=== PATIENT | male | born 1950 | race Caucasian/White ===

== ENCOUNTER 2018-01-08 13:55 | Inpatient (IN) | payer MEDICARE, MEDICAID ==
--- NOTE | 2018-01-08 14:03 | ED Physician Chart ---
ED Chief Complaint/HPI - Patient Information Date Seen:: 01/08/18 Time Seen:: 13:45 Chief Complaint:: AMS History of Present Illness:: onset x one day of AMS and ALOC with abnormal lab tests; no report of trauma, H/ As, S/T, neck pain, C/P, SOB, Abd. Pain, A/N/V/D/c, fever, chills, or urinary s/ s; pt has right LE redness and swelling x 3 days; pt's last tetanus shot: < 5 years; UTD Historian:: Patient, EMS Review:: Nurse's Note Reviewed, Old Chart Reviewed, EMS run form Reviewed ED Review of Systems - Review of Systems General/Constitutional: Fever, No chills, No weight loss, No weakness, No diaphoresis, No edema, No loss of appetite Skin: Skin lesions, Rash, No bruising Head: No headache, No light-headedness Eyes: No loss of vision, No pain, No diplopia ENT: No earache, No nasal drainage, No sore throat, No tinnitus Neck: No neck pain, No swelling, No thyromegaly, No stiffness, No mass noted Cardio Vascular: No chest pain, No palpitations, No PND, No orthopnea, No edema Pulmonary: No SOB, No cough, No sputum, No wheezing GI: No nausea, No vomiting, No diarrhea, No pain, No melena, No hematochezia, No constipation, No hematemesis G/U: No dysuria, No frequency, No hematuria, No nacturia Musculoskeletal: No bone or joint pain, No back pain, No muscle pain Endocrine: No polyuria, No polydipsia Psychiatric: No prior psych history, No depression, No anxiety, No suicidal ideation, No homicidal ideation, No auditory hallucination, No visual hallucination Hematopoietic: No bruising, No lymphadenopathy Allergic/Immuno: No urticaria, No angioedema Neurological: No syncope, No focal symptoms, No weakness, No paresthesia, No headache, No seizure, No dizziness, No confusion, No vertigo ED Past Medical History - Past Medical History Obtainable: Yes Past Medical History: HTN, Asthma/COPD, Dyslipidemia, Thyroid disorder Family History: HTN Social History: Non Smoker, No Alcohol, No Drug Use, Single, Care Facility Surgical History: None Psychiatricy History: None Medication: Reviewed ED Physical Exam - Physical Examination General/Constitutional: Awake, Well-developed, well-nourished, Alert, No distress, GCS 15, Non-toxic appearing, Ambulatory Head: Atraumatic Eyes: Lids, conjuctiva normal, PERRL, EOMI Skin: Nl inspection, No rash, No skin lesions, No ecchymosis, Well hydrated, No lymphadenopathy ENMT: External ears, nose nl, TM canals nl, Nasal exam nl, Lips, teeth, gums nl , Oropharynx nl, Tonsils nl Neck: Nontender, Full ROM w/o pain, No JVD, No nuchal rigidity, No bruit, No mass, No stridor Respiratory: Nl effort/Exclusion, Clear to Auscultation, No Wheeze/Rhonchi/Rales Cardio Vascular: RRR, No murmur, gallop, rubs, NL S1 S2, Carotid/Femoral/Distal pulses equal bilaterally GI: No tenderness/rebounding/guarding, No organomegaly, No hernia, Normal BS's, Nondistended, No mass/bruits, No McBurney tenderness : No CVA tenderness Extremities: No tenderness or effusion, Full ROM, normal strength in all extremities, No edema, Normal digits & nails Other Extremities comments:: RLL Cellulitis Neuro/Psych: Alert/oriented, DTR's symmetric, Normal sensory exam, Normal motor strength, Judgement/insight normal, Mood normal, Normal gait, No focal deficits Misc: Normal back, No paraspinal tenderness ED Labs/Radiology/EKG Results - Lab Results Comments:: H/H: 7.5/22.0; WBC: 3.2 - Radiology Results Comments:: NAD - EKG Interpretations EKG Time:: 13:54 Rate & Rhythm: 69; NSR Comments:: non-specific st-t changes ED Septic Shock - . Is Septic Shock (SBP<90, OR Lactate>4 mmol\L) present?: No ED Reassessment (Disposition) - Reassessment Reassessment Condition:: Improved - Diagnosis Diagnosis:: Dx: Cellulitis; Abnormal Labs; AMS; ALOC; Leukopenia; Sepsis; Anemia - Aftercare/Follow up Instructions Aftercare/Follow-Up Instructions:: Counseled pt regarding lab results/diagnosis & need follow up, Counseled pt & family regarding lab results/diagnosis & need follow up - Patient Disposition Discharge/Transfer:: Acute Care w/in this hosp Accepting Physician:: Dr. Guardado Time Called:: 1600 Time Responded:: 16:00 Admitted to:: Telemetry Spoke to:: Dr. Guardado Admitting Medical Physician:: Dr. Guardado Condition at Disposition:: Stable, Improved
--- NOTE | 2018-01-08 14:40 | Diagnostic Imaging Report ---
Portable chest x-ray HISTORY: Pain The heart is enlarged. Atherosclerotic calcification seen in the aorta. Increased density is noted in the left retrocardiac region. Findings may be associated with a hiatal hernia. Pulmonary parenchymal pathology including pneumonia and/or atelectasis cannot be excluded. If necessary, a CT scan would clarify. IMPRESSION: 1. Cardiomegaly without scattered vascular changes 2. Increased density in the left lower hemithorax/retrocardiac region. Changes may be associated with a hiatal hernia. However, pulmonary parenchymal pathology including pneumonia cannot be excluded. Clinical correlation is needed.
[2018-01-08 15:33] LABS: INR 1.11 (0.5-1.4); PROTHROMBIN TIME (TEST) 11.6 SECONDS (9.5-11.5)
[2018-01-08 15:39] LABS: TROP I 0.03 ng/mL (0.01-0.05)
[2018-01-08 15:40] LABS: ALB/GLOB RATIO 0.9 (1.0-1.8); ALBUMIN 2.5 gm/dL (4.2-5.5); ALKALINE PHOSPHATASE 111 U/L (34-104); ANION GAP 8.9 (7.0-16.0); BILIRUBIN,TOTAL 0.9 mg/dL (0.3-1.0); BUN - UREA NITROGEN 20 mg/dL (7-25); CALCIUM SERUM 7.8 mg/dL (8.6-10.3); CARBON DIOXIDE 19.5 mEq/L (21.0-31.0); CHLORIDE 109 mEq/L (98-107); CREATININE - SERUM 0.9 mg/dL (0.7-1.3); CREATININE KINASE 61 U/L (30-223); GFR AFRICAN-AMERICAN > 60.0 ml/min (>90); GFR NON AFRICAN-AMERICAN > 60.0 ml/min; GLUCOSE 113 mg/dL (70-105); POTASSIUM SERUM 4.4 mEq/L (3.5-5.1); SGOT 30 U/L (13-39); SGPT/ALT 16 U/L (7-52); SODIUM SERUM 133 mEq/L (136-145); TOTAL PROTEIN,SERUM 5.3 gm/dL (6.0-8.3)
[2018-01-08 15:59] LABS: % BASOPHILS 0.3 % (0.0-2.0); % EOSINOPHILS 3.7 % (0.0-5.0); % LYMPHOCYTES 16.1 % (20.0-50.0); % MONOCYTES 12.6 % (2.0-10.0); % NEUTROPHILS 67.3 % (40.0-80.0); EOSINOPHILE ABSOLUTE 0.1 Th/cmm (0.1-0.4); LYMPHOCYTE ABSOLUTE 0.5 Th/cmm (1.5-3.0); MEAN CELL VOLUME 103.9 fl (80-99); MEAN CORPUSCULAR HEMOGLOBIN 35.6 pg (27.0-31.0); MEAN CORPUSCULAR HGB CONC 34.2 pg (28.0-36.0); MEAN PLATELET VOLUME 6.5 fl; MONOCYTE ABSOLUTE 0.4 Th/cmm (0.3-1.0); NEUTROPHILE ABSOLUTE 2.2 Th/cmm (1.8-8.0); PLATELET COUNT 86 Th/cmm (150-400); RED BLOOD COUNT 2.11 Mil/cmm (3.80-5.80); RED CELL DISTRIBUTION WIDTH 16.2 % (11.5-20.0)
[2018-01-08 16:01] LABS: HEMOGLOBIN 7.5 gm/dL (12-16); WHITE BLOOD COUNT 3.2 Th/cmm (4.8-10.8)
[2018-01-08 17:24] LABS: URINE MICROSCOPIC INDICATED? YES; URINE SOURCE MIDSTREAM
[2018-01-08 17:25] LABS: URINE BILIRUBIN NEGATIVE (NEGATIVE); URINE BLOOD MODERATE (NEGATIVE); URINE GLUCOSE (UA) NEGATIVE (NEGATIVE); URINE KETONE NEGATIVE (NEGATIVE); URINE LEUKOCYTE ESTERASE NEGATIVE (NEGATIVE); URINE NITRATE NEGATIVE (NEGATIVE); URINE PROTEIN NEGATIVE (NEGATIVE)
[2018-01-08 17:37] LABS: URINE COLOR YELLOW
[2018-01-08 17:38] LABS: URINE CLARITY SLIGHTLY HAZY (CLEAR)
[2018-01-08 17:39] LABS: URINE BACTERIA NONE SEEN /hpf (NONE SEEN); URINE EPITHELIAL CELLS RARE /lpf (FEW); URINE WBC 0-2 /hpf (0-5)
[2018-01-08] MEDS ORDERED: Non-Formulary Item 1 EA (Dextran 70/Hypromellose [Artificial Tears] 1 EACH) OP PRN (19:27)
[2018-01-08] MEDS ORDERED: Albuterol Nebulizer 2.5mg/3mL HHN PRN (19:27)
[2018-01-08] MEDS ORDERED: Maalox 30 mL Cup PO PRN (19:29)
[2018-01-08] MEDS ORDERED: Levofloxacin 500mg/100mL 500 MG/100 ML BAG IV ONE (19:30)
[2018-01-08] MEDS: D5-0.9%NS 1,000 ML IV SCH (20:33)
[2018-01-08] MEDS: Hydrocodone/APAP 5mg/325mg Tab PO PRN (20:47)
[2018-01-08 22:56] VITALS: BP 112/42
[2018-01-08 23:54] LABS: RBC RETICULOCYTE COUNT 2.11 Mil/cmm
[2018-01-08 23:55] LABS: ABSOLUTE RETICULOCYTE 67.5 Th/cmm; CORRECTED RETICULOCYTE COUNT 1.6 % (0.5-1.5); RETICULOCYTES % COUNTED 3.2 % (0.5-1.5)
[2018-01-09] MEDS: Ipratropium Neb 0.5 mg/2.5 mL UD IH SCH ×4 (06:53→18:48)
[2018-01-09] MEDS: Albuterol Nebulizer 2.5mg/3mL HHN SCH ×4 (06:53→18:48)
[2018-01-09] MEDS: Levothyroxine 0.05 Mg Tab PO SCH (07:00)
[2018-01-09 07:03] LABS: EOSINOPHILE ABSOLUTE 0.1 Th/cmm (0.1-0.4); LYMPHOCYTE ABSOLUTE 0.3 Th/cmm (1.5-3.0); MEAN CORPUSCULAR HEMOGLOBIN 35.7 pg (27.0-31.0); MEAN PLATELET VOLUME 5.7 fl; MONOCYTE ABSOLUTE 0.3 Th/cmm (0.3-1.0); NEUTROPHILE ABSOLUTE 1.3 Th/cmm (1.8-8.0); PLATELET COUNT 67 Th/cmm (150-400); RED BLOOD COUNT 1.84 Mil/cmm (3.80-5.80)
[2018-01-09] MEDS: Hydrocodone/APAP 5mg/325mg Tab PO PRN ×3 (07:09→20:48)
[2018-01-09 07:29] LABS: HEMOGLOBIN 6.6 gm/dL (12-16)
[2018-01-09 07:30] LABS: % BASOPHILS 0.1 % (0.0-2.0); % LYMPHOCYTES 16.9 % (20.0-50.0); % MONOCYTES 13.5 % (2.0-10.0); % NEUTROPHILS 65.5 % (40.0-80.0); HEMATOCRIT 19.3 % (41.0-60)
--- NOTE | 2018-01-09 07:34 | Diagnostic Imaging Report ---
Bilateral lower extremity DVT study HISTORY: Leg pain COMPARISON: None Technique: Longitudinal and transverse sonographic images of the bilateral lower extremity veins were obtained with doppler analysis. FINDINGS: There is normal compressibility, augmentation and phasicity of the bilateral common femoral, superficial femoral, popliteal, and posterior tibial veins. No thrombus is visualized. IMPRESSION: No evidence of thrombus within the bilateral lower extremity veins.
[2018-01-09] MEDS ORDERED: [UNRECOGNIZED DRUG - OTHER] PO SCH (09:00)
[2018-01-09] MEDS ORDERED: TENOFOVIR PO SCH (09:00)
[2018-01-09] MEDS ORDERED: CALCIUM CARBONATE PO SCH (09:00)
[2018-01-09] MEDS ORDERED: EMTRICITAB PO SCH (09:00)
[2018-01-09] MEDS ORDERED: VITAMIN D3 PO SCH (09:00)
[2018-01-09] MEDS ORDERED: EFAVIRENZ PO SCH (09:00)
[2018-01-09] MEDS: Pantoprazole 40 mg EC Tab PO SCH (09:01)
[2018-01-09 10:28] LABS: MEAN CELL VOLUME 105.1 fl (80-99)
[2018-01-09] MEDS: D5-0.9%NS 1,000 ML IV SCH (11:17)
[2018-01-09] MEDS ORDERED: Polyvinyl Alcohol Ophth Soln 15 mL Bottle EACH EYE PRN (12:29)
--- NOTE | 2018-01-09 13:54 | Internal Medicine Prog Note ---
Internal Medicine Subjective - Subjective Service Date: 01/09/18 ([id number]) Internal Medicine Objective - Results Result Diagrams: 01/09/18 06:30 01/08/18 15:15 Recent Labs: Laboratory Last Values WBC 2.0 Th/cmm (4.8-10.8) L* 01/09/18 06:30 RBC 1.84 Mil/cmm (3.80-5.80) L 01/09/18 06:30 Hgb 6.6 gm/dL (12-16) L* 01/09/18 06:30 Hct 19.3 % (41.0-60) L* 01/09/18 06:30 MCV 105.1 fl (80-99) H 01/09/18 06:30 MCH 35.7 pg (27.0-31.0) H 01/09/18 06:30 MCHC Differential 34.0 pg (28.0-36.0) 01/09/18 06:30 RDW 16.0 % (11.5-20.0) 01/09/18 06:30 Plt Count 67 Th/cmm (150-400) L 01/09/18 06:30 MPV 5.7 fl 01/09/18 06:30 Neutrophils % 65.5 % (40.0-80.0) 01/09/18 06:30 Lymphocytes % 16.9 % (20.0-50.0) L 01/09/18 06:30 Monocytes % 13.5 % (2.0-10.0) H 01/09/18 06:30 Eosinophils % 4.0 % (0.0-5.0) 01/09/18 06:30 Basophils % 0.1 % (0.0-2.0) 01/09/18 06:30 Total Retics Counted 3.2 % (0.5-1.5) H 01/08/18 15:15 Absolute Retic 67.5 Th/cmm 01/08/18 15:15 Corrected Retic Count 1.6 % (0.5-1.5) H 01/08/18 15:15 PT 11.6 SECONDS (9.5-11.5) H 01/08/18 15:15 INR 1.11 (0.5-1.4) 01/08/18 15:15 PTT (Actin FS) 23.2 SECONDS (26.0-38.0) L 01/08/18 15:15 Sodium 133 mEq/L (136-145) L 01/08/18 15:15 Potassium 4.4 mEq/L (3.5-5.1) 01/08/18 15:15 Chloride 109 mEq/L (98-107) H 01/08/18 15:15 Carbon Dioxide 19.5 mEq/L (21.0-31.0) L 01/08/18 15:15 Anion Gap 8.9 (7.0-16.0) 01/08/18 15:15 BUN 20 mg/dL (7-25) 01/08/18 15:15 Creatinine 0.9 mg/dL (0.7-1.3) 01/08/18 15:15 Est GFR ( Amer) > 60.0 ml/min (>90) 01/08/18 15:15 Est GFR (Non-Af Amer) > 60.0 ml/min 01/08/18 15:15 BUN/Creatinine Ratio 22.2 01/08/18 15:15 Glucose 113 mg/dL (70-105) H 01/08/18 15:15 Whole Bld Lactic Acid 1.99 mmol/L (0.60-1.99) 01/08/18 15:15 Calcium 7.8 mg/dL (8.6-10.3) L 01/08/18 15:15 Total Bilirubin 0.9 mg/dL (0.3-1.0) 01/08/18 15:15 AST 30 U/L (13-39) 01/08/18 15:15 ALT 16 U/L (7-52) 01/08/18 15:15 Alkaline Phosphatase 111 U/L (34-104) H 01/08/18 15:15 Lactate Dehydrogenase 233 U/L (140-271) 01/08/18 15:15 Creatine Kinase 61 U/L (30-223) 01/08/18 15:15 Troponin I 0.03 ng/mL (0.01-0.05) 01/08/18 15:15 Total Protein 5.3 gm/dL (6.0-8.3) L 01/08/18 15:15 Albumin 2.5 gm/dL (4.2-5.5) L 01/08/18 15:15 Globulin 2.8 gm/dL 01/08/18 15:15 Albumin/Globulin Ratio 0.9 (1.0-1.8) L 01/08/18 15:15 Urine Source MIDSTREAM 01/08/18 17:00 Urine Color YELLOW 01/08/18 17:00 Urine Clarity SLIGHTLY HAZY (CLEAR) 01/08/18 17:00 Urine pH 7.0 (4.6 - 8.0) 01/08/18 17:00 Ur Specific [place] 1.010 (1.005-1.030) 01/08/18 17:00 Urine Protein NEGATIVE mg/dL (NEGATIVE) 01/08/18 17:00 Urine Glucose (UA) NEGATIVE mg/dL (NEGATIVE) 01/08/18 17:00 Urine Ketones NEGATIVE mg/dL (NEGATIVE) 01/08/18 17:00 Urine Blood MODERATE (NEGATIVE) H 01/08/18 17:00 Urine Nitrate NEGATIVE (NEGATIVE) 01/08/18 17:00 Urine Bilirubin NEGATIVE (NEGATIVE) 01/08/18 17:00 Urine Urobilinogen 2.0 E.U./dL (0.2 - 1.0) 01/08/18 17:00 Ur Leukocyte Esterase NEGATIVE (NEGATIVE) 01/08/18 17:00 Urine RBC 5-10 /hpf (0-5) H 01/08/18 17:00 Urine WBC 0-2 /hpf (0-5) 01/08/18 17:00 Ur Epithelial Cells RARE /lpf (FEW) 01/08/18 17:00 Urine Bacteria NONE SEEN /hpf (NONE SEEN) 01/08/18 17:00 Blood Type O NEGATIVE 01/09/18 08:10 Antibody Screen NEGATIVE 01/09/18 08:10 Crossmatch See Detail 01/09/18 08:10 - Physical Exam Vitals and I&O: Vital Signs Temp 98.8 F 01/09/18 12:00 Pulse 89 01/09/18 12:00 Resp 20 01/09/18 12:00 BP 104/48 01/09/18 12:00 Pulse Ox 96 01/09/18 12:00 Intake & Output 01/08/18 01/09/18 01/09/18 18:59 06:59 18:59 Intake Total 340 1000 Output Total 600 Balance -260 1000 Weight (lbs) 117 lb Intake: Intake, IV Amount 100 1000 D5-0.9%Ns 1,000 ml @ 80 1000 mls/hr IV .[id number] [facility] Rx #:[id number] Oral 240 Output: Urine 600 Other: # Bowel Movements 0 Weight Source Bedscale Active Medications: Current Medications Acetaminophen (Tylenol) 650 mg PO Q4H PRN PRN Reason: Pain Or Fever above 101 Stop: 03/09/18 19:28 Acetaminophen/Hydrocodone Bitart ([place] 5mg/325mg) 1 tab PO Q6H PRN PRN Reason: PAIN Stop: 03/09/18 19:26 Last Admin: 01/09/18 13:20 Dose: 1 tab Al Hydrox/Mg Hydrox/Simethicone (Maalox) 30 ml PO Q6H PRN PRN Reason: Dyspepsia Stop: 03/09/18 19:28 Albuterol Sulfate (Albuterol 2.5mg/3ml Neb Ud) 2.5 mg HHN QIDRT [facility] Stop: 03/10/18 06:59 Last Admin: 01/09/18 06:53 Dose: 2.5 mg Artificial Tears (Artificial Tears Ophth Soln) 1 drop EACH EYE Q4H PRN PRN Reason: EYE DRYNESS Stop: 03/10/18 12:28 Calcium Carbonate (Calcium Carb) 600 mg PO DAILY [facility] Stop: 03/11/18 08:59 Docusate Sodium (Colace) 100 mg PO BID PRN PRN Reason: Constipation Stop: 03/09/18 19:26 Dextrose/Sodium Chloride (D5-0.9%Ns) 1,000 mls @ 80 mls/hr IV .[id number] [facility] Stop: 03/09/18 19:29 Last Admin: 01/09/18 11:17 Dose: 80 mls/hr Levofloxacin (Levaquin Pb) 500 mg in 100 mls @ 100 mls/hr IV Q24HR [facility] Stop: 03/10/18 20:59 Ipratropium [place] (Atrovent Neb 0.5mg/2.5ml) 0.5 mg IH QIDRT [facility] Stop: 03/10/18 06:59 Last Admin: 01/09/18 11:18 Dose: 0.5 mg Levothyroxine Sodium (Synthroid) 0.05 mg PO QDAC [facility] Stop: 03/10/18 07:29 Last Admin: 01/09/18 07:00 Dose: 0.05 mg Miscellaneous (Albuterol Sulfate [Proair Respiclick]) 90 mcg IH Q6H PRN PRN Reason: Shortness of Breath Miscellaneous (Budesonide/Formoterol Fumarate [Symbicort 80-4.5 Mcg Inhaler]) 1 aer IH BID [facility] Stop: 03/10/18 08:59 Miscellaneous (Efavirenz/Emtricitab/Tenofovir [Atripla Tablet]) 1 tab PO DAILY [facility] Stop: 03/10/18 08:59 Ondansetron HCl (Zofran) 4 mg IV Q8H PRN PRN Reason: Nausea / Vomiting Stop: 03/09/18 19:28 Pantoprazole Sodium (Protonix) 40 mg PO DAILY [facility] Stop: 03/10/18 08:59 Last Admin: 01/09/18 09:01 Dose: 40 mg Zolpidem Tartrate (Ambien) 5 mg PO HS PRN PRN Reason: Insomnia Stop: 03/09/18 19:26 Zolpidem Tartrate (Ambien) 10 mg PO HS PRN PRN Reason: Insomnia Stop: 03/09/18 19:27 Last Admin: 01/08/18 20:48 Dose: 10 mg Internal Medicine Assmt/Plan - Assessment Assessment: SEVERE ANEMIA RIGHT LOWER EXT CELLULITIS ACUTE UTI MODERATE PROTEIN [place] MALNUTRITION HYPOCALCEMIA COPD RIGHT EYE BLINDNESS PANCYTOPENIA HIV HYPOTHYROIDISM HIATAL HERNIA POSSIBLE PNA
--- NOTE | 2018-01-09 15:07 | History & Physical ---
ADMIT DATE: 01/09/2018 CHIEF COMPLAINT: Altered mental status and abnormal labs. HISTORY OF PRESENT ILLNESS: This is a 67-year-old male who is a resident of [facility] who is admitted here to the telemetry unit due to hemoglobin of 6.5. The patient's right lower extremity is noted also with redness. The patient did not have any fevers at the correction. PAST MEDICAL HISTORY: Right eye blindness, HIV, COPD, pancytopenia, dehydration, dysphagia, hypertension, hypothyroidism, nasal congestion and liver cirrhosis. PAST SURGICAL HISTORY: None. FAMILY HISTORY: Noncontributory. SOCIAL HISTORY: The patient is a correction resident requiring 24-hour nursing care. FAMILY HISTORY: Noncontributory. REVIEW OF SYSTEMS: GENERAL: Denies any fevers and chills. CARDIOVASCULAR: Denies chest pain. RESPIRATORY: Denies shortness of breath. GASTROINTESTINAL: Denies nausea, vomiting, abdominal pain. GENITOURINARY: Denies increased frequency or dysuria. NEUROLOGIC: No headaches, seizures, or syncope. All other systems reviewed are negative. PHYSICAL EXAMINATION: GENERAL: A elderly male, awake, alert, in no apparent distress. VITAL SIGNS: Temperature ___, heart rate 89, blood pressure 104/48, respirations 20, O2 96%. HEENT: Head; normocephalic, atraumatic. NECK: Supple. No mass. LUNGS: Clear bilaterally. HEART: Regular rate and rhythm. ABDOMEN: Soft, nontender. LABORATORY DATA: WBC 2.0, H and H 6.6 and 19.3, platelets 67. Sodium 130, potassium 4.4, chloride 109, BUN 20, creatinine 0.9, albumin 2.5. DIAGNOSTIC DATA: The patient had a lower extremity ultrasound done and the impression is no evidence of acute DVT. The patient also had a chest x-ray done and the impression is cardiomegaly without atherosclerotic vascular changes, increased density in the left lower hemothorax, retrocardiac region, changes may be associated with hiatal hernia. ASSESSMENT: Cellulitis of right lower extremity, severe anemia, acute UTI, moderate protein calorie malnutrition, hypocalcemia, COPD, right eye blindness, pancytopenia, HIV, hypothyroidism, hiatal hernia, possible pneumonia. PLAN: The patient to be admitted to telemetry unit. We will get GI on the case as well as wound care. We will monitor patient's H and H. We will transfuse patient with 1 unit of PRBCs, keep the patient on empiric IV antibiotic and Levaquin. We will continue to follow this patient. [facility]# [id number]
[2018-01-09 16:52] LABS: EOSINOPHILE ABSOLUTE 0.1 Th/cmm (0.1-0.4); LYMPHOCYTE ABSOLUTE 0.3 Th/cmm (1.5-3.0); MANUAL DIFF REQUIRED? YES; MEAN CELL VOLUME 101.4 fl (80-99); MEAN CORPUSCULAR HEMOGLOBIN 35.3 pg (27.0-31.0); MEAN CORPUSCULAR HGB CONC 34.8 pg (28.0-36.0); MONOCYTE ABSOLUTE 0.3 Th/cmm (0.3-1.0); NEUTROPHILE ABSOLUTE 1.1 Th/cmm (1.8-8.0); PLATELET COUNT 69 Th/cmm (150-400); RED BLOOD COUNT 2.08 Mil/cmm (3.80-5.80); RED CELL DISTRIBUTION WIDTH 16.8 % (11.5-20.0)
[2018-01-09 17:07] LABS: HEMOGLOBIN 7.4 gm/dL (12-16); WHITE BLOOD COUNT 1.8 Th/cmm (4.8-10.8)
[2018-01-09 17:08] LABS: HEMATOCRIT 21.1 % (41.0-60)
[2018-01-09] MEDS: Levofloxacin 500mg/100mL Premix Bag IV SCH (20:59)
[2018-01-10] MEDS: D5-0.9%NS 1,000 ML IV SCH ×2 (04:36→20:36)
[2018-01-10] MEDS: Hydrocodone/APAP 5mg/325mg Tab PO PRN ×2 (05:53→19:33)
[2018-01-10] MEDS: Levothyroxine 0.05 Mg Tab PO SCH (06:32)
[2018-01-10] MEDS: Budesonide 0.5 Mg/2 mL Ud HHN SCH ×2 (07:00→19:01)
--- NOTE | 2018-01-10 07:35 | Diagnostic Imaging Report ---
Right foot 2 views limited Indication: pain Comparison: none Findings: Exam is limited as oblique views were not provided. There is evidence of subacute to chronic appearing nondisplaced fracture involving the distal shaft of the fourth metatarsal extending the fourth metatarsal neck. There is also old fracture of the second proximal phalanx. Osteopenia is noted. There is diffuse soft tissue swelling along the dorsal forefoot. Atherosclerosis is noted. Mild degenerative changes are noted. Impression: Limited exam as oblique views are not obtained. There is a subacute to chronic appearing nondisplaced fracture of the distal shaft of the fourth metatarsal extending to the fourth metatarsal neck. Please correlate with clinical findings. Additional chronic second proximal phalanx fracture. Diffuse soft tissue swelling along the dorsal forefoot. No x-ray evidence of osteomyelitis, however, if clinically warranted MRI may be obtained for further assessment. Apparent mild degenerative changes. Osteopenia. In the setting of trauma, if clinical symptoms persist and there is continued concern for an occult fracture, follow up exams in 5-7 days is suggested.
[2018-01-10] MEDS: Albuterol Nebulizer 2.5mg/3mL HHN SCH ×4 (07:38→19:01)
[2018-01-10] MEDS: Ipratropium Neb 0.5 mg/2.5 mL UD IH SCH ×4 (07:38→19:01)
[2018-01-10 07:42] LABS: MANUAL DIFF REQUIRED? YES; MEAN CELL VOLUME 102.1 fl (80-99); MEAN CORPUSCULAR HEMOGLOBIN 34.5 pg (27.0-31.0); MEAN CORPUSCULAR HGB CONC 33.8 pg (28.0-36.0); MEAN PLATELET VOLUME 5.4 fl; PLATELET COUNT 85 Th/cmm (150-400); RED BLOOD COUNT 2.19 Mil/cmm (3.80-5.80); RED CELL DISTRIBUTION WIDTH 16.9 % (11.5-20.0)
[2018-01-10 07:53] LABS: ANION GAP 9.5 (7.0-16.0); BUN - UREA NITROGEN 16 mg/dL (7-25); CALCIUM SERUM 7.4 mg/dL (8.6-10.3); CARBON DIOXIDE 17.1 mEq/L (21.0-31.0); CHLORIDE 114 mEq/L (98-107); CREATININE - SERUM 0.8 mg/dL (0.7-1.3); GFR AFRICAN-AMERICAN > 60.0 ml/min (>90); GFR NON AFRICAN-AMERICAN > 60.0 ml/min; GLUCOSE 89 mg/dL (70-105); POTASSIUM SERUM 3.6 mEq/L (3.5-5.1); SODIUM SERUM 137 mEq/L (136-145)
[2018-01-10 07:54] LABS: HEMATOCRIT 22.4 % (41.0-60); HEMOGLOBIN 7.6 gm/dL (12-16)
[2018-01-10 08:12] LABS: TOTAL CELLS COUNTED 100
[2018-01-10 08:13] LABS: BAND NEUTROPHILE 2 % (0-10); BASOPHIL 0 % (0-3); EOSINOPHIL 1 % (0-5); LYMPHOCYTE 17 % (20-50); MONOCYTE 8 % (2-10); NEUTROPHILS 72 % (40-80)
[2018-01-10] MEDS: Pantoprazole 40 mg EC Tab PO SCH (08:54)
[2018-01-10 13:13] LABS: FOLIC ACID 5.4 ng/mL (>3.0)
--- NOTE | 2018-01-10 14:40 | GI Progress Note ---
Subjective - Review of Systems Service Date: 01/10/18 Subjective: EVENTS NOTED. HAD BM - PRIOR CONSTIPATION. FILIBERTO ORAL DIET. Objective - Results Result Diagrams: 01/10/18 06:51 01/10/18 06:51 Recent Labs: Laboratory Last Values WBC 2.0 Th/cmm (4.8-10.8) L* 01/10/18 06:51 RBC 2.19 Mil/cmm (3.80-5.80) L 01/10/18 06:51 Hgb 7.6 gm/dL (12-16) L* 01/10/18 06:51 Hct 22.4 % (41.0-60) L 01/10/18 06:51 MCV 102.1 fl (80-99) H 01/10/18 06:51 MCH 34.5 pg (27.0-31.0) H 01/10/18 06:51 MCHC Differential 33.8 pg (28.0-36.0) 01/10/18 06:51 RDW 16.9 % (11.5-20.0) 01/10/18 06:51 Plt Count 85 Th/cmm (150-400) L 01/10/18 06:51 MPV 5.4 fl 01/10/18 06:51 Neutrophils % 65.5 % (40.0-80.0) 01/09/18 06:30 Band Neutrophils % 2 % (0-10) 01/10/18 06:51 Lymphocytes % 16.9 % (20.0-50.0) L 01/09/18 06:30 Monocytes % 13.5 % (2.0-10.0) H 01/09/18 06:30 Eosinophils % 4.0 % (0.0-5.0) 01/09/18 06:30 Basophils % 0.1 % (0.0-2.0) 01/09/18 06:30 Neutrophils (Manual) 72 % (40-80) 01/10/18 06:51 Lymphocytes 17 % (20-50) L 01/10/18 06:51 Monocytes 8 % (2-10) 01/10/18 06:51 Eosinophils 1 % (0-5) 01/10/18 06:51 Basophils 0 % (0-3) 01/10/18 06:51 Total Retics Counted 3.2 % (0.5-1.5) H 01/08/18 15:15 Absolute Retic 67.5 Th/cmm 01/08/18 15:15 Corrected Retic Count 1.6 % (0.5-1.5) H 01/08/18 15:15 PT 11.6 SECONDS (9.5-11.5) H 01/08/18 15:15 INR 1.11 (0.5-1.4) 01/08/18 15:15 PTT (Actin FS) 23.2 SECONDS (26.0-38.0) L 01/08/18 15:15 Sodium 137 mEq/L (136-145) 01/10/18 06:51 Potassium 3.6 mEq/L (3.5-5.1) 01/10/18 06:51 Chloride 114 mEq/L (98-107) H 01/10/18 06:51 Carbon Dioxide 17.1 mEq/L (21.0-31.0) L 01/10/18 06:51 Anion Gap 9.5 (7.0-16.0) 01/10/18 06:51 BUN 16 mg/dL (7-25) 01/10/18 06:51 Creatinine 0.8 mg/dL (0.7-1.3) 01/10/18 06:51 Est GFR ( Amer) > 60.0 ml/min (>90) 01/10/18 06:51 Est GFR (Non-Af Amer) > 60.0 ml/min 01/10/18 06:51 BUN/Creatinine Ratio 20.0 01/10/18 06:51 Glucose 89 mg/dL (70-105) 01/10/18 06:51 Whole Bld Lactic Acid 1.99 mmol/L (0.60-1.99) 01/08/18 15:15 Calcium 7.4 mg/dL (8.6-10.3) L 01/10/18 06:51 Total Bilirubin 0.9 mg/dL (0.3-1.0) 01/08/18 15:15 AST 30 U/L (13-39) 01/08/18 15:15 ALT 16 U/L (7-52) 01/08/18 15:15 Alkaline Phosphatase 111 U/L (34-104) H 01/08/18 15:15 Lactate Dehydrogenase 233 U/L (140-271) 01/08/18 15:15 Creatine Kinase 61 U/L (30-223) 01/08/18 15:15 Troponin I 0.03 ng/mL (0.01-0.05) 01/08/18 15:15 B-Natriuretic Peptide 400.0 pg/mL (5.0-100.0) H 01/10/18 06:51 Total Protein 5.3 gm/dL (6.0-8.3) L 01/08/18 15:15 Albumin 2.5 gm/dL (4.2-5.5) L 01/08/18 15:15 Globulin 2.8 gm/dL 01/08/18 15:15 Albumin/Globulin Ratio 0.9 (1.0-1.8) L 01/08/18 15:15 Vitamin B12 535 pg/mL (232-1245) 01/09/18 06:30 Folic Acid 5.4 ng/mL (>3.0) 01/09/18 06:30 Urine Source MIDSTREAM 01/08/18 17:00 Urine Color YELLOW 01/08/18 17:00 Urine Clarity SLIGHTLY HAZY (CLEAR) 01/08/18 17:00 Urine pH 7.0 (4.6 - 8.0) 01/08/18 17:00 Ur Specific [place] 1.010 (1.005-1.030) 01/08/18 17:00 Urine Protein NEGATIVE mg/dL (NEGATIVE) 01/08/18 17:00 Urine Glucose (UA) NEGATIVE mg/dL (NEGATIVE) 01/08/18 17:00 Urine Ketones NEGATIVE mg/dL (NEGATIVE) 01/08/18 17:00 Urine Blood MODERATE (NEGATIVE) H 01/08/18 17:00 Urine Nitrate NEGATIVE (NEGATIVE) 01/08/18 17:00 Urine Bilirubin NEGATIVE (NEGATIVE) 01/08/18 17:00 Urine Urobilinogen 2.0 E.U./dL (0.2 - 1.0) 01/08/18 17:00 Ur Leukocyte Esterase NEGATIVE (NEGATIVE) 01/08/18 17:00 Urine RBC 5-10 /hpf (0-5) H 01/08/18 17:00 Urine WBC 0-2 /hpf (0-5) 01/08/18 17:00 Ur Epithelial Cells RARE /lpf (FEW) 01/08/18 17:00 Urine Bacteria NONE SEEN /hpf (NONE SEEN) 01/08/18 17:00 Stool Occult Blood NEGATIVE (NEGATIVE) 01/10/18 13:30 Blood Type O NEGATIVE 01/09/18 08:10 Antibody Screen NEGATIVE 01/09/18 08:10 Crossmatch See Detail 01/09/18 08:10 - Physical Exam Vitals and I&O: Vital Signs Temp 97.8 F 01/10/18 11:15 Pulse 62 01/10/18 11:15 Resp 17 01/10/18 11:15 BP 120/57 01/10/18 11:15 Pulse Ox 98 01/10/18 11:15 Intake & Output 01/09/18 01/10/18 01/10/18 18:59 06:59 18:59 Intake Total 1000 1100 Balance 1000 1100 Weight (lbs) 62.686 kg Intake: Intake, IV Amount 1000 1100 D5-0.9%Ns 1,000 ml @ 80 1000 1000 mls/hr IV .[id number] [facility] Rx #:[id number] Levofloxacin 500mg/100mL 100 500 mg In 100 ml @ 100 mls/hr IV Q24HR [facility] Rx#: [id number] Other: Weight Source Bedscale Active Medications: Current Medications Acetaminophen (Tylenol) 650 mg PO Q4H PRN PRN Reason: Pain Or Fever above 101 Stop: 03/09/18 19:28 Last Admin: 01/10/18 01:00 Dose: 650 mg Acetaminophen/Hydrocodone Bitart ([place] 5mg/325mg) 1 tab PO Q6H PRN PRN Reason: PAIN Stop: 03/09/18 19:26 Last Admin: 01/10/18 05:53 Dose: 1 tab Al Hydrox/Mg Hydrox/Simethicone (Maalox) 30 ml PO Q6H PRN PRN Reason: Dyspepsia Stop: 03/09/18 19:28 Albuterol Sulfate (Albuterol 2.5mg/3ml Neb Ud) 2.5 mg HHN Q6H PRN PRN Reason: Shortness of Breath Albuterol Sulfate (Albuterol 2.5mg/3ml Neb Ud) 2.5 mg HHN QIDRT [facility] Stop: 03/10/18 06:59 Last Admin: 01/10/18 13:39 Dose: Not Given Artificial Tears (Artificial Tears Ophth Soln) 1 drop EACH EYE Q4H PRN PRN Reason: EYE DRYNESS Stop: 03/10/18 12:28 Budesonide (Pulmicort) 0.5 mg HHN BIDRT [facility] Stop: 03/10/18 08:59 Last Admin: 01/10/18 07:00 Dose: Not Given Calcium Carbonate (Calcium Carb) 600 mg PO DAILY [facility] Stop: 03/11/18 08:59 Last Admin: 01/10/18 08:54 Dose: 600 mg Docusate Sodium (Colace) 100 mg PO BID PRN PRN Reason: Constipation Stop: 03/09/18 19:26 Last Admin: 01/10/18 08:54 Dose: 100 mg Ferrous Sulfate (Iron) 325 mg PO BID [facility] Stop: 03/11/18 16:59 Dextrose/Sodium Chloride (D5-0.9%Ns) 1,000 mls @ 80 mls/hr IV .[id number] [facility] Stop: 03/09/18 19:29 Last Admin: 01/10/18 04:36 Dose: 80 mls/hr Levofloxacin (Levaquin Pb) 500 mg in 100 mls @ 100 mls/hr IV Q24HR [facility] Stop: 03/10/18 20:59 Last Infusion: 01/10/18 00:04 Dose: Infused Ipratropium [place] (Atrovent Neb 0.5mg/2.5ml) 0.5 mg IH QIDRT [facility] Stop: 03/10/18 06:59 Last Admin: 01/10/18 13:39 Dose: Not Given Levothyroxine Sodium (Synthroid) 0.05 mg PO QDAC [facility] Stop: 03/10/18 07:29 Last Admin: 01/10/18 06:32 Dose: 0.05 mg Miscellaneous (Efavirenz/Emtricitab/Tenofovir [Atripla Tablet]) 1 tab PO DAILY [facility] Stop: 03/10/18 08:59 Ondansetron HCl (Zofran) 4 mg IV Q8H PRN PRN Reason: Nausea / Vomiting Stop: 03/09/18 19:28 Last Admin: 01/10/18 07:31 Dose: 4 mg Pantoprazole Sodium (Protonix) 40 mg PO DAILY [facility] Stop: 03/10/18 08:59 Last Admin: 01/10/18 08:54 Dose: 40 mg Zolpidem Tartrate (Ambien) 5 mg PO HS PRN PRN Reason: Insomnia Stop: 03/09/18 19:26 Last Admin: 01/09/18 21:00 Dose: 5 mg Zolpidem Tartrate (Ambien) 10 mg PO HS PRN PRN Reason: Insomnia Stop: 03/09/18 19:27 Last Admin: 01/08/18 20:48 Dose: 10 mg General: Alert, No acute distress HEENT: Atraumatic Neck: Supple Cardiovascular: Regular rate Lungs: Clear to auscultation Abdomen: Bowel sounds, Soft, no Tender Assessment/Plan - Problem List Patient Problems: All Active Problems LOW HB AND HCT WITH RIGHT LOWER LEG [place] (Acute) - Assessment Assessment: IMPRESSION: 1. PANCYTOPENIA - COULD BE DUE TO HIV VS. BM DISORDER VS. MEDS. 2. HIV POSITIVE - ON HAART. 3. CONSTIPATION. 4. HAD EGD AND COLONOSCOPY IN 2017 REPORTEDLY NEGATIVE PER PT. 5. FOBT NEG. RECS: 1. CONSERVATIVE NON-ENDOSCOPIC MANAGEMENT. 2. NO NEED TO REPEAT ENDOSCOPIC WORKUP FOR NOW. 3. STOOL SOFTENERS. 4. DIET TOLERATED. 5. CONSIDER HEME EVALUATION FOR PANCYTOPENIA.
--- NOTE | 2018-01-10 15:15 | Internal Medicine Prog Note ---
Internal Medicine Subjective - Subjective Patient seen and examined:: with staff, chart reviewed Patient is:: awake, verbal, interactive, in bed, congested Per staff patient has:: no adverse event, no episodes of fall, poor appetite, tolerating meds Internal Medicine Objective - Results Result Diagrams: 01/10/18 06:51 01/10/18 06:51 Recent Labs: Laboratory Last Values WBC 2.0 Th/cmm (4.8-10.8) L* 01/10/18 06:51 RBC 2.19 Mil/cmm (3.80-5.80) L 01/10/18 06:51 Hgb 7.6 gm/dL (12-16) L* 01/10/18 06:51 Hct 22.4 % (41.0-60) L 01/10/18 06:51 MCV 102.1 fl (80-99) H 01/10/18 06:51 MCH 34.5 pg (27.0-31.0) H 01/10/18 06:51 MCHC Differential 33.8 pg (28.0-36.0) 01/10/18 06:51 RDW 16.9 % (11.5-20.0) 01/10/18 06:51 Plt Count 85 Th/cmm (150-400) L 01/10/18 06:51 MPV 5.4 fl 01/10/18 06:51 Neutrophils % 65.5 % (40.0-80.0) 01/09/18 06:30 Band Neutrophils % 2 % (0-10) 01/10/18 06:51 Lymphocytes % 16.9 % (20.0-50.0) L 01/09/18 06:30 Monocytes % 13.5 % (2.0-10.0) H 01/09/18 06:30 Eosinophils % 4.0 % (0.0-5.0) 01/09/18 06:30 Basophils % 0.1 % (0.0-2.0) 01/09/18 06:30 Neutrophils (Manual) 72 % (40-80) 01/10/18 06:51 Lymphocytes 17 % (20-50) L 01/10/18 06:51 Monocytes 8 % (2-10) 01/10/18 06:51 Eosinophils 1 % (0-5) 01/10/18 06:51 Basophils 0 % (0-3) 01/10/18 06:51 Total Retics Counted 3.2 % (0.5-1.5) H 01/08/18 15:15 Absolute Retic 67.5 Th/cmm 01/08/18 15:15 Corrected Retic Count 1.6 % (0.5-1.5) H 01/08/18 15:15 PT 11.6 SECONDS (9.5-11.5) H 01/08/18 15:15 INR 1.11 (0.5-1.4) 01/08/18 15:15 PTT (Actin FS) 23.2 SECONDS (26.0-38.0) L 01/08/18 15:15 Sodium 137 mEq/L (136-145) 01/10/18 06:51 Potassium 3.6 mEq/L (3.5-5.1) 01/10/18 06:51 Chloride 114 mEq/L (98-107) H 01/10/18 06:51 Carbon Dioxide 17.1 mEq/L (21.0-31.0) L 01/10/18 06:51 Anion Gap 9.5 (7.0-16.0) 01/10/18 06:51 BUN 16 mg/dL (7-25) 01/10/18 06:51 Creatinine 0.8 mg/dL (0.7-1.3) 01/10/18 06:51 Est GFR ( Amer) > 60.0 ml/min (>90) 01/10/18 06:51 Est GFR (Non-Af Amer) > 60.0 ml/min 01/10/18 06:51 BUN/Creatinine Ratio 20.0 01/10/18 06:51 Glucose 89 mg/dL (70-105) 01/10/18 06:51 Whole Bld Lactic Acid 1.99 mmol/L (0.60-1.99) 01/08/18 15:15 Calcium 7.4 mg/dL (8.6-10.3) L 01/10/18 06:51 Total Bilirubin 0.9 mg/dL (0.3-1.0) 01/08/18 15:15 AST 30 U/L (13-39) 01/08/18 15:15 ALT 16 U/L (7-52) 01/08/18 15:15 Alkaline Phosphatase 111 U/L (34-104) H 01/08/18 15:15 Lactate Dehydrogenase 233 U/L (140-271) 01/08/18 15:15 Creatine Kinase 61 U/L (30-223) 01/08/18 15:15 Troponin I 0.03 ng/mL (0.01-0.05) 01/08/18 15:15 B-Natriuretic Peptide 400.0 pg/mL (5.0-100.0) H 01/10/18 06:51 Total Protein 5.3 gm/dL (6.0-8.3) L 01/08/18 15:15 Albumin 2.5 gm/dL (4.2-5.5) L 01/08/18 15:15 Globulin 2.8 gm/dL 01/08/18 15:15 Albumin/Globulin Ratio 0.9 (1.0-1.8) L 01/08/18 15:15 Vitamin B12 535 pg/mL (232-1245) 01/09/18 06:30 Folic Acid 5.4 ng/mL (>3.0) 01/09/18 06:30 Urine Source MIDSTREAM 01/08/18 17:00 Urine Color YELLOW 01/08/18 17:00 Urine Clarity SLIGHTLY HAZY (CLEAR) 01/08/18 17:00 Urine pH 7.0 (4.6 - 8.0) 01/08/18 17:00 Ur Specific [place] 1.010 (1.005-1.030) 01/08/18 17:00 Urine Protein NEGATIVE mg/dL (NEGATIVE) 01/08/18 17:00 Urine Glucose (UA) NEGATIVE mg/dL (NEGATIVE) 01/08/18 17:00 Urine Ketones NEGATIVE mg/dL (NEGATIVE) 01/08/18 17:00 Urine Blood MODERATE (NEGATIVE) H 01/08/18 17:00 Urine Nitrate NEGATIVE (NEGATIVE) 01/08/18 17:00 Urine Bilirubin NEGATIVE (NEGATIVE) 01/08/18 17:00 Urine Urobilinogen 2.0 E.U./dL (0.2 - 1.0) 01/08/18 17:00 Ur Leukocyte Esterase NEGATIVE (NEGATIVE) 01/08/18 17:00 Urine RBC 5-10 /hpf (0-5) H 01/08/18 17:00 Urine WBC 0-2 /hpf (0-5) 01/08/18 17:00 Ur Epithelial Cells RARE /lpf (FEW) 01/08/18 17:00 Urine Bacteria NONE SEEN /hpf (NONE SEEN) 01/08/18 17:00 Stool Occult Blood NEGATIVE (NEGATIVE) 01/10/18 13:30 Blood Type O NEGATIVE 01/09/18 08:10 Antibody Screen NEGATIVE 01/09/18 08:10 Crossmatch See Detail 01/09/18 08:10 - Physical Exam Vitals and I&O: Vital Signs Temp 97.8 F 01/10/18 11:15 Pulse 75 01/10/18 14:58 Resp 18 01/10/18 14:58 BP 120/57 01/10/18 11:15 Pulse Ox 97 01/10/18 14:58 Intake & Output 01/09/18 01/10/18 01/10/18 18:59 06:59 18:59 Intake Total 1000 1100 Balance 1000 1100 Weight (lbs) 62.686 kg Intake: Intake, IV Amount 1000 1100 D5-0.9%Ns 1,000 ml @ 80 1000 1000 mls/hr IV .[id number] [facility] Rx #:[id number] Levofloxacin 500mg/100mL 100 500 mg In 100 ml @ 100 mls/hr IV Q24HR [facility] Rx#: [id number] Other: Weight Source Bedscale Active Medications: Current Medications Acetaminophen (Tylenol) 650 mg PO Q4H PRN PRN Reason: Pain Or Fever above 101 Stop: 03/09/18 19:28 Last Admin: 01/10/18 01:00 Dose: 650 mg Acetaminophen/Hydrocodone Bitart ([place] 5mg/325mg) 1 tab PO Q6H PRN PRN Reason: PAIN Stop: 03/09/18 19:26 Last Admin: 01/10/18 05:53 Dose: 1 tab Al Hydrox/Mg Hydrox/Simethicone (Maalox) 30 ml PO Q6H PRN PRN Reason: Dyspepsia Stop: 03/09/18 19:28 Albuterol Sulfate (Albuterol 2.5mg/3ml Neb Ud) 2.5 mg HHN Q6H PRN PRN Reason: Shortness of Breath Albuterol Sulfate (Albuterol 2.5mg/3ml Neb Ud) 2.5 mg HHN QIDRT [facility] Stop: 03/10/18 06:59 Last Admin: 01/10/18 14:56 Dose: Not Given Artificial Tears (Artificial Tears Ophth Soln) 1 drop EACH EYE Q4H PRN PRN Reason: EYE DRYNESS Stop: 03/10/18 12:28 Budesonide (Pulmicort) 0.5 mg HHN BIDRT [facility] Stop: 03/10/18 08:59 Last Admin: 01/10/18 07:00 Dose: Not Given Calcium Carbonate (Calcium Carb) 600 mg PO DAILY [facility] Stop: 03/11/18 08:59 Last Admin: 01/10/18 08:54 Dose: 600 mg Docusate Sodium (Colace) 100 mg PO BID PRN PRN Reason: Constipation Stop: 03/09/18 19:26 Last Admin: 01/10/18 08:54 Dose: 100 mg Ferrous Sulfate (Iron) 325 mg PO BID [facility] Stop: 03/11/18 16:59 Dextrose/Sodium Chloride (D5-0.9%Ns) 1,000 mls @ 80 mls/hr IV .[id number] [facility] Stop: 03/09/18 19:29 Last Admin: 01/10/18 04:36 Dose: 80 mls/hr Levofloxacin (Levaquin Pb) 500 mg in 100 mls @ 100 mls/hr IV Q24HR [facility] Stop: 03/10/18 20:59 Last Infusion: 01/10/18 00:04 Dose: Infused Ipratropium [place] (Atrovent Neb 0.5mg/2.5ml) 0.5 mg IH QIDRT [facility] Stop: 03/10/18 06:59 Last Admin: 01/10/18 14:56 Dose: Not Given Levothyroxine Sodium (Synthroid) 0.05 mg PO QDAC [facility] Stop: 03/10/18 07:29 Last Admin: 01/10/18 06:32 Dose: 0.05 mg Miscellaneous (Efavirenz/Emtricitab/Tenofovir [Atripla Tablet]) 1 tab PO DAILY [facility] Stop: 03/10/18 08:59 Ondansetron HCl (Zofran) 4 mg IV Q8H PRN PRN Reason: Nausea / Vomiting Stop: 03/09/18 19:28 Last Admin: 01/10/18 07:31 Dose: 4 mg Pantoprazole Sodium (Protonix) 40 mg PO DAILY [facility] Stop: 03/10/18 08:59 Last Admin: 01/10/18 08:54 Dose: 40 mg Zolpidem Tartrate (Ambien) 5 mg PO HS PRN PRN Reason: Insomnia Stop: 03/09/18 19:26 Last Admin: 01/09/18 21:00 Dose: 5 mg Zolpidem Tartrate (Ambien) 10 mg PO HS PRN PRN Reason: Insomnia Stop: 03/09/18 19:27 Last Admin: 01/08/18 20:48 Dose: 10 mg General: alert HEENT: NC/AT, PERRLA, thinning hair, poor dentition Neck: Supple Lungs: congested, rales, ronchi Cardiovascular: RRR, Normal S1, Normal S2 Abdomen: soft, non-tender, globular, positive bowel sound Extremities: excoriation, other (redness rle ) Neurological: no change, lethargic Internal Medicine Assmt/Plan - Assessment Assessment: - Assessment Assessment: SEVERE ANEMIA RIGHT LOWER EXT CELLULITIS ACUTE UTI MODERATE PROTEIN [place] MALNUTRITION HYPOCALCEMIA COPD RIGHT EYE BLINDNESS PANCYTOPENIA HIV HYPOTHYROIDISM HIATAL HERNIA POSSIBLE PNA - Plan Plan: cont on iv abx woound care will refer to gi and heme cpm Nutritional Asmnt/Malnutr-PDOC - Dietary Evaluation Malnutrition Findings (Please click <Entered> for more info): Nutritional Asmnt/Malnutrition Start: 01/09/18 16: 57 Text: Status: Complete Freq: Document 01/09/18 16:57 [email or web address] (Rec: 01/09/18 17:11 MARISABEL [email or web address]) Nutritional Asmnt/Malnutrition Patient General Information Nutritional Screening High Risk Consult Diagnosis cellulitis RLE, anemia Pertinent Medical Hx/Surgical Hx HTn, asthma/COPD, dyslipidemia , thyroid disorder Subjective Information Consult receivd for multiple wound. Pt seen lying in bed at time of visit, awake and alert. pt reported he eats ok. Pt does not like fish/tuna or pork. pt refer small portion, not a big eater. Current Diet Order/ Nutrition Support [facility] soft chopped Pertinent Medications calcium, colace, levaquin, synthroid, protonix Pertinent Labs 01/08 Na 133, Cl 109, glucose 113, ca 7.8 Nutritional Hx/Data Height 1.91 m Height (Calculated Centimeters) 190.5 Current Weight (lbs) 53.07 kg Weight (Calculated Kilograms) 53.1 Weight (Calculated Grams) 12463.3 [place] Body Weight 196 Body Mass Index (BMI) 14.6 Weight Status Overweight GI Symptoms GI Symptoms None Last BM none Difficult in: None Skin Integrity/Comment: unhealing wound to left neck, healing wounds to coccyx, right lower leg swelling and redness Estimated Nutritional Goals BEE in Kcals: Using Current wt Calories/Kcals/Kg 30-35 Kcals Calculated 7986-6405 Protein: Using Current wt Protein g/k.2-1.4 Protein Calculated 63-74 Fluid: ml 1590-1855ml (1ml/kcal) Nutritional Problem 2. Problem Problem underweight Etiology possible inadequate energy intake Signs/Symptoms: BMI 14.6 1. Problem Problem increased nutrition needs Etiology increased metabolic demand for wound healing Signs/Symptoms: nonhealing wound to left neck Malnutrition Alert Muscle Mass (Severe) Mod to Severe Depletion Protein-Calorie Malnutrition N/A Is there a minimum of two criteria No selected? Query Text:Check all the applicable criteria. A minimum of two criteria are recommended for diagnosis of either severe or non-severe malnutrition. Intervention/Recommendation Comments 1. Continue with current diet as ordered. Encouraged oral intake. If PO intake low, will consider adding boost or magic cup. 2. Monitor PO intake, wt, labs and skin integrity 3. F/U as moderate risk in 3-5 days, 01/12-01/14, PO check Expected Outcomes/Goals Expected Outcomes/Goals 1. PO intake to meet at least 75% of nutritional needs. 2. Wt stability, skin to remain intact, labs to approach WNL.
[2018-01-10] MEDS: Ferrous Sulfate 325 MG TAB PO SCH (17:40)
[2018-01-10] MEDS: ATRIPLA TABLET PO SCH (17:40)
--- NOTE | 2018-01-10 19:08 | Consultation ---
DATE OF CONSULTATION: 01/10/2018 HEMATOLOGY ONCOLOGY CONSULTATION REFERRING PHYSICIAN: Dr. Guardado. REASON FOR CONSULTATION: Pancytopenia. HISTORY OF PRESENT ILLNESS: The patient is a 67-year-old male who was referred for evaluation of pancytopenia. The patient had a history of HIV and denied the history of AIDS. His CD4 count is unknown. He had a severe persistent pancytopenia, therefore was asked to evaluate. PAST MEDICAL HISTORY: HIV, COPD, pancytopenia, dysphagia, hypertension, hypothyroid. PAST SURGICAL HISTORY: None. MEDICATIONS: Reviewed including Atripla for HIV, iron supplementation, Tylenol, calcium, Colace, iron, Levaquin, Synthroid, Zofran, Protonix, Ambien. PHYSICAL EXAMINATION: GENERAL: The patient is awake, chronically ill looking. VITAL SIGNS: Stable. HEENT: Right eye deviation. Left eye, okay. The patient is blind in the right eye. NECK: No lymphadenopathy. CHEST: Clear. ABDOMEN: Soft, scaphoid. No organomegaly or ascites. EXTREMITIES: Wasted muscles. LABORATORY DATA: White count 2, hemoglobin 7.6, platelets 85. Coagulation panel normal. Chemistry: Normal liver functions and creatinine. B12 and folate level normal. Stool occult blood negative. ASSESSMENT: 1. Pancytopenia associated with HIV, there is no obvious etiology. On reviewing the current medications, Atripla causing neutropenia risk is low and the patient is also on Protonix but might cause some degree of thrombocytopenia; therefore, I will discontinue the Protonix and the change of the Atripla to the ID specialist managing HIV. I will obtain abdominal ultrasound and erythropoietin level. The patient will need a bone marrow biopsy to definitively diagnose the etiology. I discussed the procedure with him, he prefers not to do the procedure at this time. Thank you, Dr. Guardado for the opportunity to participate in the care of this interesting case. JOB# [id number]
[2018-01-10] MEDS: Levofloxacin 500mg/100mL Premix Bag IV SCH (20:34)
[2018-01-11 05:11] LABS: FERRITIN 60 ng/mL (30-400); HAPTOGLOBIN 95 mg/dL (34-200); IRON LC 36 ug/dL (38-169); TIBC (LC) 149 ug/dL (250-450); UIBC 113 ug/dL (111-343)
[2018-01-11] MEDS: Levothyroxine 0.05 Mg Tab PO SCH ×2 (06:45→14:25)
[2018-01-11 07:33] LABS: EOSINOPHILE ABSOLUTE 0.1 Th/cmm (0.1-0.4); LYMPHOCYTE ABSOLUTE 0.3 Th/cmm (1.5-3.0); MEAN CELL VOLUME 103.1 fl (80-99); MEAN PLATELET VOLUME 5.6 fl; MONOCYTE ABSOLUTE 0.2 Th/cmm (0.3-1.0); NEUTROPHILE ABSOLUTE 1.3 Th/cmm (1.8-8.0); PLATELET COUNT 94 Th/cmm (150-400); RED BLOOD COUNT 2.17 Mil/cmm (3.80-5.80); RED CELL DISTRIBUTION WIDTH 16.6 % (11.5-20.0)
[2018-01-11 07:43] LABS: ANION GAP 10.4 (7.0-16.0); BUN - UREA NITROGEN 14 mg/dL (7-25); CALCIUM SERUM 7.3 mg/dL (8.6-10.3); CARBON DIOXIDE 17.3 mEq/L (21.0-31.0); CHLORIDE 116 mEq/L (98-107); CREATININE - SERUM 0.9 mg/dL (0.7-1.3); GFR AFRICAN-AMERICAN > 60.0 ml/min (>90); GFR NON AFRICAN-AMERICAN > 60.0 ml/min; GLUCOSE 94 mg/dL (70-105); MAGNESIUM 1.9 mg/dL (1.9-2.7); POTASSIUM SERUM 3.7 mEq/L (3.5-5.1); SODIUM SERUM 140 mEq/L (136-145)
[2018-01-11] MEDS: Albuterol Nebulizer 2.5mg/3mL HHN SCH ×3 (07:53→15:24)
[2018-01-11] MEDS: Ipratropium Neb 0.5 mg/2.5 mL UD IH SCH ×3 (07:53→15:25)
[2018-01-11] MEDS: Budesonide 0.5 Mg/2 mL Ud HHN SCH (07:53)
[2018-01-11 07:56] LABS: WHITE BLOOD COUNT 1.9 Th/cmm (4.8-10.8)
[2018-01-11 07:57] LABS: % NEUTROPHILS 66.4 % (40.0-80.0); HEMATOCRIT 22.4 % (41.0-60); HEMOGLOBIN 7.6 gm/dL (12-16)
[2018-01-11 07:58] LABS: % BASOPHILS 0.1 % (0.0-2.0); % EOSINOPHILS 5.6 % (0.0-5.0); % LYMPHOCYTES 16.3 % (20.0-50.0); % MONOCYTES 11.6 % (2.0-10.0)
[2018-01-11] MEDS: ATRIPLA TABLET PO SCH ×2 (08:15→14:24)
[2018-01-11] MEDS: Ferrous Sulfate 325 MG TAB PO SCH ×3 (08:15→17:16)
[2018-01-11] MEDS: Pantoprazole 40 mg EC Tab PO SCH ×2 (08:15→14:25)
--- NOTE | 2018-01-11 08:25 | GI Progress Note ---
Subjective - Review of Systems Service Date: 01/11/18 Subjective: No new events today. On facemask this morning. No complaints Objective - Results Result Diagrams: 01/11/18 06:18 01/11/18 06:18 Recent Labs: Laboratory Last Values WBC 1.9 Th/cmm (4.8-10.8) L* 01/11/18 06:18 RBC 2.17 Mil/cmm (3.80-5.80) L 01/11/18 06:18 Hgb 7.6 gm/dL (12-16) L* 01/11/18 06:18 Hct 22.4 % (41.0-60) L 01/11/18 06:18 MCV 103.1 fl (80-99) H 01/11/18 06:18 MCH 35.0 pg (27.0-31.0) H 01/11/18 06:18 MCHC Differential 34.0 pg (28.0-36.0) 01/11/18 06:18 RDW 16.6 % (11.5-20.0) 01/11/18 06:18 Plt Count 94 Th/cmm (150-400) L 01/11/18 06:18 MPV 5.6 fl 01/11/18 06:18 Neutrophils % 66.4 % (40.0-80.0) 01/11/18 06:18 Band Neutrophils % 2 % (0-10) 01/10/18 06:51 Lymphocytes % 16.3 % (20.0-50.0) L 01/11/18 06:18 Monocytes % 11.6 % (2.0-10.0) H 01/11/18 06:18 Eosinophils % 5.6 % (0.0-5.0) H 01/11/18 06:18 Basophils % 0.1 % (0.0-2.0) 01/11/18 06:18 Neutrophils (Manual) 72 % (40-80) 01/10/18 06:51 Lymphocytes 17 % (20-50) L 01/10/18 06:51 Monocytes 8 % (2-10) 01/10/18 06:51 Eosinophils 1 % (0-5) 01/10/18 06:51 Basophils 0 % (0-3) 01/10/18 06:51 Total Retics Counted 3.2 % (0.5-1.5) H 01/08/18 15:15 Absolute Retic 67.5 Th/cmm 01/08/18 15:15 Corrected Retic Count 1.6 % (0.5-1.5) H 01/08/18 15:15 Haptoglobin 95 mg/dL (34-200) 01/09/18 06:30 PT 11.6 SECONDS (9.5-11.5) H 01/08/18 15:15 INR 1.11 (0.5-1.4) 01/08/18 15:15 PTT (Actin FS) 23.2 SECONDS (26.0-38.0) L 01/08/18 15:15 Sodium 140 mEq/L (136-145) 01/11/18 06:18 Potassium 3.7 mEq/L (3.5-5.1) 01/11/18 06:18 Chloride 116 mEq/L (98-107) H 01/11/18 06:18 Carbon Dioxide 17.3 mEq/L (21.0-31.0) L 01/11/18 06:18 Anion Gap 10.4 (7.0-16.0) 01/11/18 06:18 BUN 14 mg/dL (7-25) 01/11/18 06:18 Creatinine 0.9 mg/dL (0.7-1.3) 01/11/18 06:18 Est GFR ( Amer) > 60.0 ml/min (>90) 01/11/18 06:18 Est GFR (Non-Af Amer) > 60.0 ml/min 01/11/18 06:18 BUN/Creatinine Ratio 15.6 01/11/18 06:18 Glucose 94 mg/dL (70-105) 01/11/18 06:18 Whole Bld Lactic Acid 1.99 mmol/L (0.60-1.99) 01/08/18 15:15 Calcium 7.3 mg/dL (8.6-10.3) L 01/11/18 06:18 Magnesium 1.9 mg/dL (1.9-2.7) 01/11/18 06:18 Iron 36 ug/dL (38-169) L 01/09/18 06:30 TIBC 149 ug/dL (250-450) L 01/09/18 06:30 Iron Saturation 24 % (15-55) 01/09/18 06:30 Unsaturated IBC 113 ug/dL (111-343) 01/09/18 06:30 Ferritin 60 ng/mL (30-400) 01/09/18 06:30 Total Bilirubin 0.9 mg/dL (0.3-1.0) 01/08/18 15:15 AST 30 U/L (13-39) 01/08/18 15:15 ALT 16 U/L (7-52) 01/08/18 15:15 Alkaline Phosphatase 111 U/L (34-104) H 01/08/18 15:15 Lactate Dehydrogenase 233 U/L (140-271) 01/08/18 15:15 Creatine Kinase 61 U/L (30-223) 01/08/18 15:15 Troponin I 0.03 ng/mL (0.01-0.05) 01/08/18 15:15 B-Natriuretic Peptide 400.0 pg/mL (5.0-100.0) H 01/10/18 06:51 Total Protein 5.3 gm/dL (6.0-8.3) L 01/08/18 15:15 Albumin 2.5 gm/dL (4.2-5.5) L 01/08/18 15:15 Globulin 2.8 gm/dL 01/08/18 15:15 Albumin/Globulin Ratio 0.9 (1.0-1.8) L 01/08/18 15:15 Vitamin B12 535 pg/mL (232-1245) 01/09/18 06:30 Folic Acid 5.4 ng/mL (>3.0) 01/09/18 06:30 Urine Source MIDSTREAM 01/08/18 17:00 Urine Color YELLOW 01/08/18 17:00 Urine Clarity SLIGHTLY HAZY (CLEAR) 01/08/18 17:00 Urine pH 7.0 (4.6 - 8.0) 01/08/18 17:00 Ur Specific [place] 1.010 (1.005-1.030) 01/08/18 17:00 Urine Protein NEGATIVE mg/dL (NEGATIVE) 01/08/18 17:00 Urine Glucose (UA) NEGATIVE mg/dL (NEGATIVE) 01/08/18 17:00 Urine Ketones NEGATIVE mg/dL (NEGATIVE) 01/08/18 17:00 Urine Blood MODERATE (NEGATIVE) H 01/08/18 17:00 Urine Nitrate NEGATIVE (NEGATIVE) 01/08/18 17:00 Urine Bilirubin NEGATIVE (NEGATIVE) 01/08/18 17:00 Urine Urobilinogen 2.0 E.U./dL (0.2 - 1.0) 01/08/18 17:00 Ur Leukocyte Esterase NEGATIVE (NEGATIVE) 01/08/18 17:00 Urine RBC 5-10 /hpf (0-5) H 01/08/18 17:00 Urine WBC 0-2 /hpf (0-5) 01/08/18 17:00 Ur Epithelial Cells RARE /lpf (FEW) 01/08/18 17:00 Urine Bacteria NONE SEEN /hpf (NONE SEEN) 01/08/18 17:00 Stool Occult Blood NEGATIVE (NEGATIVE) 01/10/18 13:30 Blood Type O NEGATIVE 01/09/18 08:10 Antibody Screen NEGATIVE 01/09/18 08:10 Crossmatch See Detail 01/09/18 08:10 - Physical Exam Vitals and I&O: Vital Signs Temp 98.6 F 01/11/18 04:00 Pulse 79 01/11/18 04:00 Resp 18 01/11/18 04:00 BP 113/48 01/11/18 04:00 Pulse Ox 97 01/11/18 04:00 Intake & Output 01/10/18 01/11/18 01/11/18 18:59 06:59 18:59 Intake Total 1650 100 Balance 1650 100 Weight (lbs) 62.686 kg 63.73 kg Intake: Intake, IV Amount 1000 100 D5-0.9%Ns 1,000 ml @ 80 1000 mls/hr IV .[id number] [facility] Rx #:[id number] Levofloxacin 500mg/100mL 100 500 mg In 100 ml @ 100 mls/hr IV Q24HR [facility] Rx#: [id number] Oral 650 Other: # Voids 3 3 # Bowel Movements 1 Weight Source Bedscale Bedscale Active Medications: Current Medications Acetaminophen (Tylenol) 650 mg PO Q4H PRN PRN Reason: Pain Or Fever above 101 Stop: 03/09/18 19:28 Last Admin: 01/10/18 01:00 Dose: 650 mg Acetaminophen/Hydrocodone Bitart ([place] 5mg/325mg) 1 tab PO Q6H PRN PRN Reason: PAIN Stop: 03/09/18 19:26 Last Admin: 01/10/18 19:33 Dose: 1 tab Al Hydrox/Mg Hydrox/Simethicone (Maalox) 30 ml PO Q6H PRN PRN Reason: Dyspepsia Stop: 03/09/18 19:28 Albuterol Sulfate (Albuterol 2.5mg/3ml Neb Ud) 2.5 mg HHN Q6H PRN PRN Reason: Shortness of Breath Albuterol Sulfate (Albuterol 2.5mg/3ml Neb Ud) 2.5 mg HHN QIDRT [facility] Stop: 03/10/18 06:59 Last Admin: 01/10/18 19:01 Dose: 2.5 mg Artificial Tears (Artificial Tears Ophth Soln) 1 drop EACH EYE Q4H PRN PRN Reason: EYE DRYNESS Stop: 03/10/18 12:28 Budesonide (Pulmicort) 0.5 mg HHN BIDRT [facility] Stop: 03/10/18 08:59 Last Admin: 01/11/18 07:53 Dose: 0.5 mg Calcium Carbonate (Calcium Carb) 600 mg PO DAILY [facility] Stop: 03/11/18 08:59 Last Admin: 01/11/18 08:15 Dose: Not Given Docusate Sodium (Colace) 100 mg PO BID PRN PRN Reason: Constipation Stop: 03/09/18 19:26 Last Admin: 01/10/18 08:54 Dose: 100 mg Ferrous Sulfate (Iron) 325 mg PO BID [facility] Stop: 03/11/18 16:59 Last Admin: 01/11/18 08:15 Dose: Not Given Dextrose/Sodium Chloride (D5-0.9%Ns) 1,000 mls @ 80 mls/hr IV .[id number] [facility] Stop: 03/09/18 19:29 Last Admin: 01/10/18 20:36 Dose: 80 mls/hr Levofloxacin (Levaquin Pb) 500 mg in 100 mls @ 100 mls/hr IV Q24HR [facility] Stop: 03/10/18 20:59 Last Infusion: 01/10/18 23:29 Dose: Infused Ipratropium [place] (Atrovent Neb 0.5mg/2.5ml) 0.5 mg IH QIDRT [facility] Stop: 03/10/18 06:59 Last Admin: 01/11/18 07:53 Dose: 0.5 mg Levothyroxine Sodium (Synthroid) 0.05 mg PO QDAC [facility] Stop: 03/10/18 07:29 Last Admin: 01/11/18 06:45 Dose: Not Given Ondansetron HCl (Zofran) 4 mg IV Q8H PRN PRN Reason: Nausea / Vomiting Stop: 03/09/18 19:28 Last Admin: 01/10/18 15:54 Dose: 4 mg Pantoprazole Sodium (Protonix) 40 mg PO DAILY [facility] Stop: 03/10/18 08:59 Last Admin: 01/11/18 08:15 Dose: Not Given Atripla Tablet 1 PO DAILY [facility] Stop: 03/11/18 17:59 Last Admin: 01/11/18 08:15 Dose: Not Given Zolpidem Tartrate (Ambien) 5 mg PO HS PRN PRN Reason: Insomnia Stop: 03/09/18 19:26 Last Admin: 01/09/18 21:00 Dose: 5 mg Zolpidem Tartrate (Ambien) 10 mg PO HS PRN PRN Reason: Insomnia Stop: 03/09/18 19:27 Last Admin: 01/10/18 20:34 Dose: 10 mg General: Alert, No acute distress HEENT: Atraumatic Neck: Supple Cardiovascular: Regular rate Abdomen: Bowel sounds, Soft, no Tender, no Distended, no Rebound, no Mass, no Guarding Assessment/Plan - Problem List Patient Problems: All Active Problems LOW HB AND HCT WITH RIGHT LOWER LEG [place] (Acute) - Assessment Assessment: IMPRESSION: 1. PANCYTOPENIA - COULD BE DUE TO HIV VS. BM DISORDER VS. MEDS. 2. HIV POSITIVE - ON HAART. 3. CONSTIPATION. 4. HAD EGD AND COLONOSCOPY IN 2017 REPORTEDLY NEGATIVE PER PT. 5. FOBT NEG. RECS: 1. CONSERVATIVE NON-ENDOSCOPIC MANAGEMENT. 2. NO NEED TO REPEAT ENDOSCOPIC WORKUP FOR NOW. 3. STOOL SOFTENERS. 4. DIET TOLERATED. 5. Heme evaluation is underway
[2018-01-11] MEDS ORDERED: Ferrous Sulfate 325 MG TAB PO SCH ×2 (09:00→17:00)
--- NOTE | 2018-01-11 11:49 | General Progress Note ---
Subjective - Review of Systems Service Date: 01/11/18 Subjective: denied nausea Objective - Results Result Diagrams: 01/11/18 06:18 01/11/18 06:18 Recent Labs: Laboratory Last Values WBC 1.9 Th/cmm (4.8-10.8) L* 01/11/18 06:18 RBC 2.17 Mil/cmm (3.80-5.80) L 01/11/18 06:18 Hgb 7.6 gm/dL (12-16) L* 01/11/18 06:18 Hct 22.4 % (41.0-60) L 01/11/18 06:18 MCV 103.1 fl (80-99) H 01/11/18 06:18 MCH 35.0 pg (27.0-31.0) H 01/11/18 06:18 MCHC Differential 34.0 pg (28.0-36.0) 01/11/18 06:18 RDW 16.6 % (11.5-20.0) 01/11/18 06:18 Plt Count 94 Th/cmm (150-400) L 01/11/18 06:18 MPV 5.6 fl 01/11/18 06:18 Neutrophils % 66.4 % (40.0-80.0) 01/11/18 06:18 Band Neutrophils % 2 % (0-10) 01/10/18 06:51 Lymphocytes % 16.3 % (20.0-50.0) L 01/11/18 06:18 Monocytes % 11.6 % (2.0-10.0) H 01/11/18 06:18 Eosinophils % 5.6 % (0.0-5.0) H 01/11/18 06:18 Basophils % 0.1 % (0.0-2.0) 01/11/18 06:18 Neutrophils (Manual) 72 % (40-80) 01/10/18 06:51 Lymphocytes 17 % (20-50) L 01/10/18 06:51 Monocytes 8 % (2-10) 01/10/18 06:51 Eosinophils 1 % (0-5) 01/10/18 06:51 Basophils 0 % (0-3) 01/10/18 06:51 Total Retics Counted 3.2 % (0.5-1.5) H 01/08/18 15:15 Absolute Retic 67.5 Th/cmm 01/08/18 15:15 Corrected Retic Count 1.6 % (0.5-1.5) H 01/08/18 15:15 Haptoglobin 95 mg/dL (34-200) 01/09/18 06:30 PT 11.6 SECONDS (9.5-11.5) H 01/08/18 15:15 INR 1.11 (0.5-1.4) 01/08/18 15:15 PTT (Actin FS) 23.2 SECONDS (26.0-38.0) L 01/08/18 15:15 Sodium 140 mEq/L (136-145) 01/11/18 06:18 Potassium 3.7 mEq/L (3.5-5.1) 01/11/18 06:18 Chloride 116 mEq/L (98-107) H 01/11/18 06:18 Carbon Dioxide 17.3 mEq/L (21.0-31.0) L 01/11/18 06:18 Anion Gap 10.4 (7.0-16.0) 01/11/18 06:18 BUN 14 mg/dL (7-25) 01/11/18 06:18 Creatinine 0.9 mg/dL (0.7-1.3) 01/11/18 06:18 Est GFR ( Amer) > 60.0 ml/min (>90) 01/11/18 06:18 Est GFR (Non-Af Amer) > 60.0 ml/min 01/11/18 06:18 BUN/Creatinine Ratio 15.6 01/11/18 06:18 Glucose 94 mg/dL (70-105) 01/11/18 06:18 Whole Bld Lactic Acid 1.99 mmol/L (0.60-1.99) 01/08/18 15:15 Calcium 7.3 mg/dL (8.6-10.3) L 01/11/18 06:18 Magnesium 1.9 mg/dL (1.9-2.7) 01/11/18 06:18 Iron 36 ug/dL (38-169) L 01/09/18 06:30 TIBC 149 ug/dL (250-450) L 01/09/18 06:30 Iron Saturation 24 % (15-55) 01/09/18 06:30 Unsaturated IBC 113 ug/dL (111-343) 01/09/18 06:30 Erythropoietin 37.1 mIU/mL (2.6-18.5) H 01/10/18 06:51 Ferritin 60 ng/mL (30-400) 01/09/18 06:30 Total Bilirubin 0.9 mg/dL (0.3-1.0) 01/08/18 15:15 AST 30 U/L (13-39) 01/08/18 15:15 ALT 16 U/L (7-52) 01/08/18 15:15 Alkaline Phosphatase 111 U/L (34-104) H 01/08/18 15:15 Lactate Dehydrogenase 233 U/L (140-271) 01/08/18 15:15 Creatine Kinase 61 U/L (30-223) 01/08/18 15:15 Troponin I 0.03 ng/mL (0.01-0.05) 01/08/18 15:15 B-Natriuretic Peptide 400.0 pg/mL (5.0-100.0) H 01/10/18 06:51 Total Protein 5.3 gm/dL (6.0-8.3) L 01/08/18 15:15 Albumin 2.5 gm/dL (4.2-5.5) L 01/08/18 15:15 Globulin 2.8 gm/dL 01/08/18 15:15 Albumin/Globulin Ratio 0.9 (1.0-1.8) L 01/08/18 15:15 Vitamin B12 535 pg/mL (232-1245) 01/09/18 06:30 Folic Acid 5.4 ng/mL (>3.0) 01/09/18 06:30 Urine Source MIDSTREAM 01/08/18 17:00 Urine Color YELLOW 01/08/18 17:00 Urine Clarity SLIGHTLY HAZY (CLEAR) 01/08/18 17:00 Urine pH 7.0 (4.6 - 8.0) 01/08/18 17:00 Ur Specific [place] 1.010 (1.005-1.030) 01/08/18 17:00 Urine Protein NEGATIVE mg/dL (NEGATIVE) 01/08/18 17:00 Urine Glucose (UA) NEGATIVE mg/dL (NEGATIVE) 01/08/18 17:00 Urine Ketones NEGATIVE mg/dL (NEGATIVE) 01/08/18 17:00 Urine Blood MODERATE (NEGATIVE) H 01/08/18 17:00 Urine Nitrate NEGATIVE (NEGATIVE) 01/08/18 17:00 Urine Bilirubin NEGATIVE (NEGATIVE) 01/08/18 17:00 Urine Urobilinogen 2.0 E.U./dL (0.2 - 1.0) 01/08/18 17:00 Ur Leukocyte Esterase NEGATIVE (NEGATIVE) 01/08/18 17:00 Urine RBC 5-10 /hpf (0-5) H 01/08/18 17:00 Urine WBC 0-2 /hpf (0-5) 01/08/18 17:00 Ur Epithelial Cells RARE /lpf (FEW) 01/08/18 17:00 Urine Bacteria NONE SEEN /hpf (NONE SEEN) 01/08/18 17:00 Stool Occult Blood NEGATIVE (NEGATIVE) 01/10/18 13:30 Blood Type O NEGATIVE 01/09/18 08:10 Antibody Screen NEGATIVE 01/09/18 08:10 Crossmatch See Detail 01/09/18 08:10 - Physical Exam Vitals and I&O: Vital Signs Temp 98.2 F 01/11/18 08:00 Pulse 85 01/11/18 08:10 Resp 18 01/11/18 08:10 BP 103/55 01/11/18 08:00 Pulse Ox 96 01/11/18 08:10 Intake & Output 01/10/18 01/11/18 01/11/18 18:59 06:59 18:59 Intake Total 1650 100 Balance 1650 100 Weight (lbs) 62.686 kg 63.73 kg 63.73 kg Intake: Intake, IV Amount 1000 100 D5-0.9%Ns 1,000 ml @ 80 1000 mls/hr IV .[id number] [facility] Rx #:[id number] Levofloxacin 500mg/100mL 100 500 mg In 100 ml @ 100 mls/hr IV Q24HR [facility] Rx#: [id number] Oral 650 Other: # Voids 3 3 # Bowel Movements 1 Weight Source Bedscale Bedscale Bedscale Active Medications: Current Medications Acetaminophen (Tylenol) 650 mg PO Q4H PRN PRN Reason: Pain Or Fever above 101 Stop: 03/09/18 19:28 Last Admin: 01/10/18 01:00 Dose: 650 mg Acetaminophen/Hydrocodone Bitart ([place] 5mg/325mg) 1 tab PO Q6H PRN PRN Reason: PAIN Stop: 03/09/18 19:26 Last Admin: 01/10/18 19:33 Dose: 1 tab Al Hydrox/Mg Hydrox/Simethicone (Maalox) 30 ml PO Q6H PRN PRN Reason: Dyspepsia Stop: 03/09/18 19:28 Albuterol Sulfate (Albuterol 2.5mg/3ml Neb Ud) 2.5 mg HHN Q6H PRN PRN Reason: Shortness of Breath Albuterol Sulfate (Albuterol 2.5mg/3ml Neb Ud) 2.5 mg [facility] QIDRT [facility] Stop: 03/10/18 06:59 Last Admin: 01/10/18 19:01 Dose: 2.5 mg Artificial Tears (Artificial Tears Ophth Soln) 1 drop EACH EYE Q4H PRN PRN Reason: EYE DRYNESS Stop: 03/10/18 12:28 Budesonide (Pulmicort) 0.5 mg HHN BIDRT [facility] Stop: 03/10/18 08:59 Last Admin: 01/11/18 07:53 Dose: 0.5 mg Calcium Carbonate (Calcium Carb) 600 mg PO DAILY [facility] Stop: 03/11/18 08:59 Last Admin: 01/11/18 08:15 Dose: Not Given Docusate Sodium (Colace) 100 mg PO BID PRN PRN Reason: Constipation Stop: 03/09/18 19:26 Last Admin: 01/10/18 08:54 Dose: 100 mg Ferrous Sulfate (Iron) 325 mg PO BID [facility] Stop: 03/11/18 16:59 Last Admin: 01/11/18 08:15 Dose: Not Given Dextrose/Sodium Chloride (D5-0.9%Ns) 1,000 mls @ 80 mls/hr IV .[id number] [facility] Stop: 03/09/18 19:29 Last Admin: 01/10/18 20:36 Dose: 80 mls/hr Levofloxacin (Levaquin Pb) 500 mg in 100 mls @ 100 mls/hr IV Q24HR [facility] Stop: 03/10/18 20:59 Last Infusion: 01/10/18 23:29 Dose: Infused Ipratropium [place] (Atrovent Neb 0.5mg/2.5ml) 0.5 mg IH QIDRT [facility] Stop: 03/10/18 06:59 Last Admin: 01/11/18 07:53 Dose: 0.5 mg Levothyroxine Sodium (Synthroid) 0.05 mg PO QDAC [facility] Stop: 03/10/18 07:29 Last Admin: 01/11/18 06:45 Dose: Not Given Ondansetron HCl (Zofran) 4 mg IV Q8H PRN PRN Reason: Nausea / Vomiting Stop: 03/09/18 19:28 Last Admin: 01/10/18 15:54 Dose: 4 mg Pantoprazole Sodium (Protonix) 40 mg PO DAILY [facility] Stop: 03/10/18 08:59 Last Admin: 01/11/18 08:15 Dose: Not Given Atripla Tablet 1 PO DAILY [facility] Stop: 03/11/18 17:59 Last Admin: 01/11/18 08:15 Dose: Not Given Zolpidem Tartrate (Ambien) 5 mg PO HS PRN PRN Reason: Insomnia Stop: 03/09/18 19:26 Last Admin: 01/09/18 21:00 Dose: 5 mg Zolpidem Tartrate (Ambien) 10 mg PO HS PRN PRN Reason: Insomnia Stop: 03/09/18 19:27 Last Admin: 01/10/18 20:34 Dose: 10 mg General: Alert, No acute distress HEENT: Atraumatic Neck: Supple Cardiovascular: Regular rate Lungs: Clear to auscultation Abdomen: Bowel sounds, Soft, no Tender, no Distended, no Rebound, no Mass, no Guarding Assessment/Plan - Problem List Patient Problems: All Active Problems LOW HB AND HCT WITH RIGHT LOWER LEG [place] (Acute) - Assessment Assessment: * HIV * 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 refused bone marrow biopsy No need for transfusion; monitor may benefit from epo and iron Nutritional Asmnt/Malnutr-PDOC - Dietary Evaluation Malnutrition Findings (Please click <Entered> for more info): Nutritional Asmnt/Malnutrition Start: 01/09/18 16: 57 Text: Status: Complete Freq: Document 01/09/18 16:57 JANNET (Rec: 01/09/18 17:11 JANNET [facility]) Nutritional Asmnt/Malnutrition Patient General Information Nutritional Screening High Risk Consult Diagnosis cellulitis RLE, anemia Pertinent Medical Hx/Surgical Hx HTn, asthma/COPD, dyslipidemia , thyroid disorder Subjective Information Consult receivd for multiple wound. Pt seen lying in bed at time of visit, awake and alert. pt reported he eats ok. Pt does not like fish/tuna or pork. pt refer small portion, not a big eater. Current Diet Order/ Nutrition Support [facility] soft chopped Pertinent Medications calcium, colace, levaquin, synthroid, protonix Pertinent Labs 01/08 Na 133, Cl 109, glucose 113, ca 7.8 Nutritional Hx/Data Height 1.91 m Height (Calculated Centimeters) 190.5 Current Weight (lbs) 53.07 kg Weight (Calculated Kilograms) 53.1 Weight (Calculated Grams) 17299.3 [place] Body Weight 196 Body Mass Index (BMI) 14.6 Weight Status Overweight GI Symptoms GI Symptoms None Last BM none Difficult in: None Skin Integrity/Comment: unhealing wound to left neck, healing wounds to coccyx, right lower leg swelling and redness Estimated Nutritional Goals BEE in Kcals: Using Current wt Calories/Kcals/Kg 30-35 Kcals Calculated 0259-0267 Protein: Using Current wt Protein g/k.2-1.4 Protein Calculated 63-74 Fluid: ml 1590-1855ml (1ml/kcal) Nutritional Problem 2. Problem Problem underweight Etiology possible inadequate energy intake Signs/Symptoms: BMI 14.6 1. Problem Problem increased nutrition needs Etiology increased metabolic demand for wound healing Signs/Symptoms: nonhealing wound to left neck Malnutrition Alert Muscle Mass (Severe) Mod to Severe Depletion Protein-Calorie Malnutrition N/A Is there a minimum of two criteria No selected? Query Text:Check all the applicable criteria. A minimum of two criteria are recommended for diagnosis of either severe or non-severe malnutrition. Intervention/Recommendation Comments 1. Continue with current diet as ordered. Encouraged oral intake. If PO intake low, will consider adding boost or magic cup. 2. Monitor PO intake, wt, labs and skin integrity 3. F/U as moderate risk in 3-5 days, 01/12-01/14, PO check Expected Outcomes/Goals Expected Outcomes/Goals 1. PO intake to meet at least 75% of nutritional needs. 2. Wt stability, skin to remain intact, labs to approach WNL.
--- NOTE | 2018-01-11 13:23 | Discharge Summary ---
DATE OF DISCHARGE: 01/11/2018 CHIEF COMPLAINT: Altered level of consciousness and right leg swelling. FINAL DIAGNOSES: Right lower extremity cellulitis, severe anemia, HIV, UTI, protein-calorie malnutrition, severe hypercholesterolemia, COPD, blindness, hypothyroidism, hiatal hernia, and possible pneumonia. HISTORY OF PRESENT ILLNESS: This 67-year-old male with 1.0 admitted secondary to a low hemoglobin of 6. The patient admitted for further management. PHYSICAL EXAMINATION: VITAL SIGNS: Blood pressure 105/50, respirations 16, pulse 81, temperature . GENERAL: Elderly male, appears his stated age. NECK: Supple. No mass. LUNGS: Equal breath sounds, otherwise clear to auscultation. HEART: Regular rate and rhythm with systolic ejection murmur. ABDOMEN: Soft, globular. EXTREMITIES: Positive excoriation atrophy, decreased redness in the right lower extremity. HOSPITAL COURSE: The patient was admitted to telemetry. The patient was referred to Dr. Woodward for GI. Repeat endoscopy. The patient given 1 unit of blood transfusion. The patient was referred to Hematology, Dr. Nicole. The patient was on IV antibiotic. The patient wanted to go home and continue with care at the nursing facility. Otherwise, the patient will be signing out AMA. CONDITION ON DISCHARGE: Fair. DISCHARGE INSTRUCTIONS: The pain to current medical regimen. The patient will be signed out by ____. JOB# [id number]
[2018-01-11] MEDS ORDERED: Sulfamethoxazole/TMP 800/160mg Tab PO SCH (17:00)
--- NOTE | 2018-01-12 08:59 | Consultation ---
DATE OF CONSULTATION: 01/09/2018 GASTROENTEROLOGY CONSULTATION TYPE OF CONSULTATION: Gastroenterology. REQUESTING PHYSICIAN: Imer Guardado DO REASON FOR CONSULTATION: Anemia. HISTORY OF PRESENT ILLNESS: A 67-year-old male who is a prison resident, admitted for right lower extremity cellulitis. He also was noted to have hemoglobin of 6.5. We were asked to evaluate the patient for his anemia. The patient denies abdominal pain, nausea, vomiting, diarrhea, constipation or overt GI bleeding. He reports having had an upper endoscopy and colonoscopy in [facility] last year that was reportedly negative. PAST MEDICAL HISTORY: Right eye blindness, HIV positivity, COPD, pancytopenia, dehydration, dysphagia, hypertension, hypothyroidism and possible cirrhosis. ALLERGIES: PENICILLIN AND TRAMADOL. MEDICATIONS: Here are Tylenol, [place], Maalox, albuterol, calcium carbonate, IV fluids, Atrovent, Levaquin, Synthroid, ProAir, Atripla, Zofran p.r.n., Protonix, Ambien. SOCIAL HISTORY: No recent tobacco, alcohol or drugs. FAMILY HISTORY: Noncontributory. REVIEW OF SYSTEMS: A comprehensive 12-point review of systems was conducted and is only positive for those signs and symptoms present in the history of present illness. PHYSICAL EXAMINATION: VITAL SIGNS: Afebrile, BP noted, pulse 82, respirations 19, O2 sat is 97% on room. GENERAL: The patient is well-developed, well-nourished male, who is in no acute distress, alert. HEENT: Sclerae nonicteric. Oropharynx is clear. CARDIOVASCULAR: Regular rate and rhythm. LUNGS: Clear to auscultation bilaterally. ABDOMEN: Soft, nontender, nondistended. EXTREMITIES: No clubbing, cyanosis, or edema. RECTAL: Deferred. LABORATORY DATA AND IMAGING: WBC 2.0, hemoglobin 6.6, platelet 67. INR is 1.1. Creatinine 0.9. Liver enzymes normal except alkaline phosphatase is mildly elevated to 111, albumin 2.5. Urinalysis shows moderate blood with 5 to 10 rbc's. IMPRESSION: 1. Anemia, which is actually pancytopenia without overt gastrointestinal bleeding. This could be from a bone marrow disease, perhaps HIV positivity or perhaps some sort of infectious process, less likely from cirrhosis, hypersplenism. I doubt gastrointestinal bleeding for blood loss at this point. The patient has had endoscopic workup with endoscopy and colonoscopy last year. Thank you, Dr. Imer Guardado, for involving us in the care of your patient. If you have any further questions, please call us. JOB# [id number] MTDD
--- NOTE | 2018-01-12 09:20 | Diagnostic Imaging Report ---
Ultrasound abdomen HISTORY: Splenomegaly COMPARISON: None Technique: Sonography of the abdomen was performed in multiple planes. FINDINGS: There is suggestion of small pleural effusions. Dilated vessels of the mid abdomen are seen including surrounding the pancreas. The liver demonstrates a heterogeneous echotexture measures 14.4 cm. No evidence of focal lesions. Mild ascites is noted. There is a 1.5 cm gallstone the gallbladder neck. The gallbladder wall measures 3 mm. The common bile duct measures 3 mm. There is indeterminate area along the gallbladder region measuring 2.3 x 2.2 cm. Evaluation of the pancreas is limited due to bowel gas and prominent vessels. The right kidney measures 10.5 x 4.5 cm. The left kidney measures 9.6 x 4.9 cm. No evidence of focal lesions or hydronephrosis. There is increased echogenicity of the kidneys. The spleen is markedly enlarged measuring 19.8 cm x 8 cm. The visualized portions of the abdominal aorta is within normal limits in size. IMPRESSION: Marked splenomegaly with spleen measuring 19.8 x 8 cm. Dilated vessels of the upper abdomen possibly due to varices. Recommend further assessment with CT examination. Gallstone with stone noted in the gallbladder neck. Borderline prominent gallbladder wall is also noted. If indicated, nuclear medicine HIDA scan may be obtained for further assessment. Indeterminate area along the gallbladder region measuring 2.3 x 2.2 cm. Findings may represent adjacent bowel loop. Other mass lesions cannot be excluded. Again further assessment with CT exam, preferably with IV and oral contrast is recommended. Heterogeneous liver which may reflect underlying hepatocellular disease Mild ascites. Small bilateral pleural effusions suspected.
[2018-01-13 10:12] LABS: GLIADIN DEAMINATED PEPTIDE IGA 6 units (0-19); TTG IGA-TISSUE TRANSGLUTIMASE <2 U/mL (0-3)
== END 2018-01-11 17:23 | DRG 871 ==
LOC: ER 13:55 → MSI 17:05 → TELE 18:53
PROVIDERS: ADMIT Internal Medicine; ATTEND Internal Medicine
PROC: 30233N1 Transfusion of Nonautologous Red Blood Cells into Peripheral Vein, Percutaneous Approach (ICD-10-PCS; principal; 2018-01-09)
DX: A41.9 Sepsis, unspecified organism (principal); J18.9 Pneumonia, unspecified organism; L03.115 Cellulitis of right lower limb; N39.0 Urinary tract infection, site not specified; E44.0 Moderate protein-calorie malnutrition; Z68.1 Body mass index [BMI] 19.9 or less, adult; J44.0 Chronic obstructive pulmonary disease with (acute) lower respiratory infection; D61.818 Other pancytopenia; E83.51 Hypocalcemia; H54.40 Blindness, one eye, unspecified eye; E03.9 Hypothyroidism, unspecified; K44.9 Diaphragmatic hernia without obstruction or gangrene; D73.1 Hypersplenism; E78.5 Hyperlipidemia, unspecified; I10 Essential (primary) hypertension; D64.9 Anemia, unspecified; K74.60 Unspecified cirrhosis of liver; K59.00 Constipation, unspecified; Z82.49 Family history of ischemic heart disease and other diseases of the circulatory system; Z88.0 Allergy status to penicillin; Z88.8 Allergy status to other drugs, medicaments and biological substances; Z79.899 Other long term (current) drug therapy; Z79.1 Long term (current) use of non-steroidal anti-inflammatories (NSAID); Z79.2 Long term (current) use of antibiotics
CPT/HCPCS: 36415-UA; 71045-TC; 73620-TC-RT; 76700-TC; 80048-TC; 80053-TC; 81001-TC; 82270-TC; 82550-TC; 82607-90; 82668-90; 82728-90; 82746-90; 82784-90; 83010-90; 83516-90; 83540-90; 83550-90; 83605; 83615-TC; 83735-TC; 83880-TC; 84484-TC; 85007-TC; 85025-TC; 85027-TC; 85044-TC; 85610-TC; 85730-TC; 86850-TC; 86900-TC; 86901-TC; 86922-TC; 87086-90; 90779; 93005; 93970-TC-50; 94640; 94760; 96375; J1956; J2405; J3370; J7040; J7042; J7613; P9016; Z7610